=== PATIENT | female | born 1965 | race Caucasian/White ===

== ENCOUNTER 2018-10-03 19:00 | Observation (INO) | payer BC ==
[2018-10-03] MEDS ORDERED: Sodium Chloride 0.9% 1000 ML 1,000 ML IV STA (19:17)
[2018-10-03] MEDS ORDERED: Zofran 4 MG/2 ML VIAL IV ONE (19:17)
[2018-10-03] MEDS ORDERED: MORPHINE SULFATE 2 MG INJ IV ONE (19:17)
[2018-10-03] MEDS ORDERED: Zofran 4 MG/2 ML VIAL ONE (19:29)
[2018-10-03] MEDS ORDERED: MORPHINE SULFATE 2 MG INJ ONE ×2 (19:29→22:50)
[2018-10-03] MEDS ORDERED: Sodium Chloride 0.9% 1000 ML 1,000 ML ONE (19:29)
[2018-10-03 19:33] LABS: BASOPHIL % 0.3 % (0.0-0.4); Basophil (Absolute #) 0.03 (0-0.4); Eosinophil % 2.7 % (0.00-5.0); Eosinophil (Absolute #) 0.26 (0-0.5); Granulocyte Absolute (ANC) 6.79 (1.4-6.9); Granulocytes % 69.1 % (36.0-66.0); Hemoglobin 14.6 gm/dl (12.0-16.0); Lymphocyte (Absolute #) 1.82 (1.0-4.6); Lymphocytes % 18.6 % (24.0-44.0); Mean Cell Volume 94.5 fl (78-100); Mean Corpuscular Hemoglobin 32.1 pg (26-32); Mean Platelet Volume 10.2 fl (6-9.5); Monocyte (Absolute #) 0.91 (0.0-1.3); Monocytes % 9.3 % (0.0-12.0); Platelet Count 236 K/mm3 (150-450); Red Blood Count 4.55 M/mm3 (4.1-5.4); Red Cell Distribution Width 12.4 % (11.5-14.0); White Blood Count 9.8 K/mm3 (4.0-10.5)
[2018-10-03 19:46] LABS: ALBUMIN 4.7 g/dL (3.5-5.0); ALKALINE PHOSPHATASE 105 U/L (38-126); AMYLASE 91 U/L (30-110); ANION GAP 15.3 MEQ/L (5-15); BLOOD UREA NITROGEN 13 mg/dL (7-17); CHLORIDE 102 mmol/L (98-107); Calcium 9.8 mg/dL (8.4-10.2); Carbon Dioxide 25 mmol/L (22-30); Creatinine 1 0.56 mg/dL (0.52-1.04); Glucose 110 mg/dL (74-106); LIPASE 80 U/L (23-300); Potassium 4.1 mmol/L (3.5-5.1); SGOT/AST 36 U/L (14-36); SGPT/ALT 58 U/L (0-35); SODIUM 138 mmol/L (137-145); Total Protein 7.7 g/dL (6.3-8.2)
[2018-10-03 20:02] LABS: Appearance CLEAR (CLEAR); Bilirubin NEGATIVE (NEGATIVE); Blood SMALL Ery/ul (0-5); Glucose NEGATIVE (NEGATIVE); Ketones NEGATIVE (NEGATIVE); Leukocyte Esterase NEGATIVE (NEGATIVE); Nitrite NEGATIVE (NEGATIVE); Protein,Urine Dip NEGATIVE (Negative); Urobilinogen NEGATIVE mg/dL (0-1)
[2018-10-03 20:05] LABS: Bacteria NONE SEEN /HPF (NEGATIVE)
[2018-10-03] MEDS ORDERED: MORPHINE SULFATE 2 MG INJ IV STA (22:39)
--- NOTE | 2018-10-03 23:01 | ERPHSYRPT ---
- History of Present Illness Historian: patient Exam Limitations: no limitations Patient Subjective Stated Complaint: pt here for pain to right side of abd that radiates to right flank area with nausea Triage Nursing Assessment: pt alert, walked in, resp easy, skin w/d/p, abd soft, Physician History: Pt is a 53 y/o female that presented to the ER with severe R sided abdominal pain that is colicky in nature. Pt states, RUQ, and R CVA pain. Severe nausea , but no vomiting. No SOB or cough. No chest pain or palpitations. No dysuria , or frequency. No constipation. No melena, hematochezia or hematuria. Timing/Duration: today Activities at Onset: none Quality: cramping, sharpness Abdominal Pain Onset Location: RUQ, flank (On right) Pain Radiation: no radiation Severity of Pain-Max: severe Severity of Pain-Current: severe Modifying Factors: Improves With: nothing, analgesics Associated Symptoms: nausea Previous symptoms: no prior history Allergies/Adverse Reactions: red dye Allergy (Verified 10/03/18 19:11) Home Medications: Levothyroxine Sodium 75 Mcg [Synthroid 75 Mcg] 75 meq DAILY 10/03/18 [ History] Penicillin V Potassium 500 mg BID 10/03/18 [History] Hx Tetanus, Diphtheria Vaccination/Date Given: Yes Hx Influenza Vaccination/Date Given: No Hx Pneumococcal Vaccination/Date Given: No Immunizations Up to Date: Yes - Review of Systems Constitutional: Malaise Eyes: No Symptoms Ears, Nose, & Throat: No Symptoms Respiratory: No Cough, No Dyspnea Cardiac: No Chest Pain, No Edema, No Syncope Abdominal/Gastrointestinal: Abdominal Pain, Nausea Genitourinary Symptoms: Flank Pain (on R), No Dysuria Musculoskeletal: No Back Pain, No Neck Pain Skin: No Rash Neurological: No Dizziness, No Focal Weakness, No Sensory Changes - Past Medical History Pertinent Past Medical History: Yes Endocrine Medical History: Hypothyroidism - Past Surgical History Past Surgical History: Yes Female Surgical History: Hysterectomy - Social History Smoking Status: Never smoker Exposure to second hand smoke: No Drug Use: none Patient Lives Alone: No - Female History Hx Last Menstrual Period: hyster Hx Now: No - Nursing Vital Signs Nursing Vital Signs: Initial Vital Signs Temperature 97.4 F 10/03/18 19:08 Pulse Rate 76 02/24/19 19:08 Respiratory Rate 16 10/03/18 19:08 Blood Pressure 159/76 10/03/18 19:08 O2 Sat by Pulse Oximetry 99 10/03/18 19:08 Pain Scale Pain Intensity 9 - Physical Exam General Appearance: severe distress Eye Exam: PERRL/EOMI, eyes nml inspection Ears, Nose, Throat Exam: normal ENT inspection, pharynx normal, moist mucous membranes Neck Exam: normal inspection, non-tender, supple, full range of motion Respiratory Exam: normal breath sounds, lungs clear, No respiratory distress Cardiovascular Exam: regular rate/rhythm, normal heart sounds Gastrointestinal/Abdomen Exam: tenderness (RUQ, R CVA) Back Exam: normal inspection, normal range of motion, No CVA tenderness, No vertebral tenderness Extremity Exam: normal inspection, normal range of motion, pelvis stable Neurologic Exam: alert, oriented x 3, cooperative, normal mood/affect, nml cerebellar function, sensation nml, No motor deficits SpO2: 100 - Course Nursing assessment & vital signs reviewed: Yes - CT Exams Abdomen/Pelvis CT Interpretation: Negative, Tele-radiologist Report Ordered Tests: Active Orders 24 hr Category Date Time Status IV Insertion STAT Care 10/03/18 19:17 Active ABDOMEN AND PELVIS W CONTRAST [CT] Routine Exams 10/03/18 Ordered ABDOMEN AND PELVIS W/0 CONTRAS [CT] Stat Exams 10/03/18 19:18 Taken ABDOMINAL-LIMITED [US] Stat Exams 10/03/18 Ordered KIDNEY [US] Stat Exams 10/03/18 Ordered AMYLASE Stat Lab 10/03/18 19:29 Completed CBC W DIFF Stat Lab 10/03/18 19:29 Completed CMP Stat Lab 10/03/18 19:29 Completed LIPASE Stat Lab 10/03/18 19:29 Completed Lactic Acid Stat Lab 10/03/18 19:30 Completed UA W/RFX UR CULTURE Stat Lab 10/03/18 19:56 Completed Medication Summary Discontinued Medications Generic Name Dose Route Start Last Admin Trade Name Freq PRN Reason Stop Dose Admin Sodium Chloride 1,000 mls @ 999 mls/hr 10/03/18 19:17 10/03/18 19:35 Sodium Chloride 0.9% 1000 Ml IV 10/03/18 20:17 999 mls/hr .Q1H1M STA Administration Sodium Chloride Confirm 10/03/18 19:29 Sodium Chloride 0.9% 1000 Ml Administered 10/03/18 19:30 Dose 1,000 mls @ ud .ROUTE .STK-MED ONE Morphine Sulfate 2 mg 10/03/18 19:17 10/03/18 19:39 Morphine Sulfate 2 Mg Inj IV 10/03/18 19:18 2 mg STAT ONE Administration Morphine Sulfate Confirm 10/03/18 19:29 Morphine Sulfate 2 Mg Inj Administered 10/03/18 19:30 Dose 2 mg .ROUTE .STK-MED ONE Morphine Sulfate 2 mg 10/03/18 22:39 Morphine Sulfate 2 Mg Inj IV 10/03/18 22:40 ONCE STA Morphine Sulfate Confirm 10/03/18 22:50 Morphine Sulfate 2 Mg Inj Administered 10/03/18 22:51 Dose 2 mg .ROUTE .STK-MED ONE Ondansetron HCl 4 mg 10/03/18 19:17 10/03/18 19:44 Zofran 4 Mg/2 Ml Vial IV 10/03/18 19:18 4 mg STAT ONE Administration Ondansetron HCl Confirm 10/03/18 19:29 Zofran 4 Mg/2 Ml Vial Administered 10/03/18 19:30 Dose 4 mg .ROUTE .STK-MED ONE Lab/Rad Data: Laboratory Result Diagrams 10/03/18 19:29 10/03/18 19:29 Laboratory Results 10/03/18 10/03/18 10/03/18 Range/Units 19:56 19:30 19:29 WBC (4.0-10.5) K/mm3 RBC (4.1-5.4) M/mm3 Hgb (12.0-16.0) gm/dl Hct (35-47) % MCV (78-100) fl MCH (26-32) pg MCHC (32-36) g/dl RDW (11.5-14.0) % Plt Count (150-450) K/mm3 MPV (6-9.5) fl Gran % (36.0-66.0) % Eos # (Auto) (0-0.5) Absolute Lymphs (auto) (1.0-4.6) Absolute Monos (auto) (0.0-1.3) Lymphocytes % (24.0-44.0) % Monocytes % (0.0-12.0) % Eosinophils % (0.00-5.0) % Basophils % (0.0-0.4) % Absolute Granulocytes (1.4-6.9) Basophils # (0-0.4) Sodium 138 (137-145) mmol/L Potassium 4.1 (3.5-5.1) mmol/L Chloride 102 (98-107) mmol/L Carbon Dioxide 25 (22-30) mmol/L Anion Gap 15.3 H (5-15) MEQ/L BUN 13 (7-17) mg/dL Creatinine 0.56 (0.52-1.04) mg/dL Estimated GFR > 60.0 ML/MIN Glucose 110 H (74-106) mg/dL Lactic Acid 1.7 (0.4-2.0) Calcium 9.8 (8.4-10.2) mg/dL Total Bilirubin 0.60 (0.2-1.3) mg/dL AST 36 (14-36) U/L ALT 58 H (0-35) U/L Alkaline Phosphatase 105 (38-126) U/L Serum Total Protein 7.7 (6.3-8.2) g/dL Albumin 4.7 (3.5-5.0) g/dL Amylase 91 (30-110) U/L Lipase 80 (23-300) U/L Urine Color STRAW (YELLOW) Urine Appearance CLEAR (CLEAR) Urine pH 7.0 (5-6) Ur Specific [place] 1.010 (1.005-1.025) Urine Protein NEGATIVE (Negative) Urine Ketones NEGATIVE (NEGATIVE) Urine Blood SMALL (0-5) Chon/ul Urine Nitrite NEGATIVE (NEGATIVE) Urine Bilirubin NEGATIVE (NEGATIVE) Urine Urobilinogen NEGATIVE (0-1) mg/dL Ur Leukocyte Esterase NEGATIVE (NEGATIVE) Urine WBC (Auto) NONE (0-5) /HPF Urine RBC (Auto) NONE (0-2) /HPF U Epithel Cells (Auto) NONE (FEW) /HPF Urine Bacteria (Auto) NONE SEEN (NEGATIVE) /HPF Urine Culture Reflexed NO (NO) Urine Glucose NEGATIVE (NEGATIVE) mg/dL 10/03/18 Range/Units 19:29 WBC 9.8 (4.0-10.5) K/mm3 RBC 4.55 (4.1-5.4) M/mm3 Hgb 14.6 (12.0-16.0) gm/dl Hct 43.0 (35-47) % MCV 94.5 (78-100) fl MCH 32.1 H (26-32) pg MCHC 34.0 (32-36) g/dl RDW 12.4 (11.5-14.0) % Plt Count 236 (150-450) K/mm3 MPV 10.2 H (6-9.5) fl Gran % 69.1 H (36.0-66.0) % Eos # (Auto) 0.26 (0-0.5) Absolute Lymphs (auto) 1.82 (1.0-4.6) Absolute Monos (auto) 0.91 (0.0-1.3) Lymphocytes % 18.6 L (24.0-44.0) % Monocytes % 9.3 (0.0-12.0) % Eosinophils % 2.7 (0.00-5.0) % Basophils % 0.3 (0.0-0.4) % Absolute Granulocytes 6.79 (1.4-6.9) Basophils # 0.03 (0-0.4) Sodium (137-145) mmol/L Potassium (3.5-5.1) mmol/L Chloride (98-107) mmol/L Carbon Dioxide (22-30) mmol/L Anion Gap (5-15) MEQ/L BUN (7-17) mg/dL Creatinine (0.52-1.04) mg/dL Estimated GFR ML/MIN Glucose (74-106) mg/dL Lactic Acid (0.4-2.0) Calcium (8.4-10.2) mg/dL Total Bilirubin (0.2-1.3) mg/dL AST (14-36) U/L ALT (0-35) U/L Alkaline Phosphatase (38-126) U/L Serum Total Protein (6.3-8.2) g/dL Albumin (3.5-5.0) g/dL Amylase (30-110) U/L Lipase (23-300) U/L Urine Color (YELLOW) Urine Appearance (CLEAR) Urine pH (5-6) Ur Specific [place] (1.005-1.025) Urine Protein (Negative) Urine Ketones (NEGATIVE) Urine Blood (0-5) Chon/ul Urine Nitrite (NEGATIVE) Urine Bilirubin (NEGATIVE) Urine Urobilinogen (0-1) mg/dL Ur Leukocyte Esterase (NEGATIVE) Urine WBC (Auto) (0-5) /HPF Urine RBC (Auto) (0-2) /HPF U Epithel Cells (Auto) (FEW) /HPF Urine Bacteria (Auto) (NEGATIVE) /HPF Urine Culture Reflexed (NO) Urine Glucose (NEGATIVE) mg/dL - Progress Progress: unchanged Progress Note: 10/03/18 22:58 Pt was worked up and was found to have no nephrolithiasis, no cholicystitis or cholelithiasis, no Appendicitis. No leukocytosis, and normal clean UA. Pt will be placed in observation, and Dr Cuadra accepted. Discussed with : Juan Manuel West Will see patient in: hospital (observation) - Departure Time of Disposition: 23:01 Departure Disposition: Observation Clinical Impression: Abdominal pain Condition: Stable Critical Care Time: No Referrals: POOJA HOLLEY MD [Primary Care Provider] -
[2018-10-04] MEDS: Sodium Chloride 0.9% 1000 ML 1,000 ML IV SCH ×3 (01:04→20:55)
[2018-10-04] MEDS: DILAUDID 2 MG INJECTION IV PRN ×2 (03:22→10:19)
[2018-10-04] MEDS: Zofran 4 MG/2 ML VIAL IV PRN ×3 (03:31→15:20)
[2018-10-04 06:30] LABS: INR 1.1 (0.8-3.0); PROTIME 12.8 SECONDS (9.95-12.35)
[2018-10-04 06:36] LABS: ALBUMIN 4.2 g/dL (3.5-5.0); ALKALINE PHOSPHATASE 87 U/L (38-126); BLOOD UREA NITROGEN 9 mg/dL (7-17); CHLORIDE 103 mmol/L (98-107); Calcium 8.8 mg/dL (8.4-10.2); Carbon Dioxide 25 mmol/L (22-30); Creatinine 1 0.53 mg/dL (0.52-1.04); Glucose 117 mg/dL (74-106); SGOT/AST 34 U/L (14-36); SGPT/ALT 48 U/L (0-35); SODIUM 138 mmol/L (137-145)
[2018-10-04 06:53] LABS: BASOPHIL % 0.2 % (0.0-0.4); Basophil (Absolute #) 0.03 (0-0.4); Eosinophil % 1.1 % (0.00-5.0); Eosinophil (Absolute #) 0.14 (0-0.5); Granulocyte Absolute (ANC) 10.36 (1.4-6.9); Granulocytes % 78.2 % (36.0-66.0); Hematocrit 41.4 % (35-47); Hemoglobin 13.9 gm/dl (12.0-16.0); Lymphocyte (Absolute #) 1.59 (1.0-4.6); Mean Cell Volume 95.8 fl (78-100); Mean Corpuscular Hemoglobin 32.2 pg (26-32); Mean Corpuscular Hgb Concent. 33.6 g/dl (32-36); Mean Platelet Volume 10.5 fl (6-9.5); Monocyte (Absolute #) 1.13 (0.0-1.3); Monocytes % 8.5 % (0.0-12.0); Platelet Count 254 K/mm3 (150-450); Red Blood Count 4.32 M/mm3 (4.1-5.4); Red Cell Distribution Width 12.4 % (11.5-14.0); White Blood Count 13.3 K/mm3 (4.0-10.5)
--- NOTE | 2018-10-04 08:47 | XRAY ---
Indication: Right upper quadrant/flank pain. History renal stone. Multiple contiguous axial images obtained through the abdomen and pelvis without contrast as ordered. Comparison: May 23, 2016. Lung bases demonstrates minimal/mild bibasilar fibrosis/scarring and 4 mm noncalcified subpleural nodule in the right base. No infiltrate or effusion. Heart is not enlarged. Stable moderate-sized hiatal hernia. Stomach is distended with food/fluid. Noncontrasted stomach and bowel loops appear nonobstructed. Normal appendix. Again hysterectomy with new 1.8 cm right ovary cyst. No free fluid/air. Stable nonobstructing left renal micro-calculus and left lower pole angiomyolipoma. Remaining liver, gallbladder, pancreas, spleen, adrenal glands, kidneys, ureters, bladder, and aorta appear unremarkable for noncontrast exam. Osseous structures intact again with minimal degenerative changes throughout the spine. No ventral or inguinal hernias. Impression: 1. Stable moderate-sized hiatal hernia, nonobstructing left renal micro-calculus, and left renal angiomyolipoma. 2. Stable right lung base noncalcified micronodule favored to be benign given stability over the years. 3. New 1.8 cm dominant right ovary cyst. 4. Remaining CT abdomen/pelvis without contrast exam is negative. Comment: Preliminary interpretation was made by C. No critical discrepancy. CT DI 20.19
[2018-10-04] MEDS: PROTONIX 40 MG IV IV SCH (10:05)
[2018-10-04] MEDS ORDERED: Phenergan 25 MG INJ IM PRN (11:53)
[2018-10-04] MEDS: SYNTHROID 75 MCG PO SCH (13:26)
--- NOTE | 2018-10-04 15:26 | XRAY ---
Indication: Right flank pain. 1.8 cm right ovary cyst on recent CT abdomen/pelvis. Hysterectomy. Two-dimensional transabdominal pelvic sonogram was performed. Comparison: None Uterus surgically absent. Neither ovaries visualized. No suspicious solid/cystic mass or fluid collection. Impression: Presumed total hysterectomy in a otherwise negative pelvic sonogram.
[2018-10-04] MEDS: TORAdol 30 mg Injection IV PRN (18:47)
[2018-10-05] MEDS: PROTONIX 40 MG IV IV SCH (08:09)
[2018-10-05] MEDS: Sodium Chloride 0.9% 1000 ML 1,000 ML IV SCH ×2 (08:10→14:19)
[2018-10-05] MEDS: TORAdol 30 mg Injection IV PRN ×2 (08:16→14:18)
[2018-10-05 09:13] LABS: Hematocrit 39.6 % (35-47); Mean Cell Volume 96.4 fl (78-100); Mean Corpuscular Hemoglobin 31.6 pg (26-32); Mean Corpuscular Hgb Concent. 32.8 g/dl (32-36); Mean Platelet Volume 10.1 fl (6-9.5); Platelet Count 192 K/mm3 (150-450); Red Blood Count 4.11 M/mm3 (4.1-5.4); Red Cell Distribution Width 12.3 % (11.5-14.0); White Blood Count 7.7 K/mm3 (4.0-10.5)
[2018-10-05 09:31] LABS: ALBUMIN 3.8 g/dL (3.5-5.0); ALKALINE PHOSPHATASE 72 U/L (38-126); ANION GAP 9.3 MEQ/L (5-15); BLOOD UREA NITROGEN 9 mg/dL (7-17); CHLORIDE 107 mmol/L (98-107); Calcium 8.9 mg/dL (8.4-10.2); Carbon Dioxide 27 mmol/L (22-30); Glucose 94 mg/dL (74-106); Potassium 3.6 mmol/L (3.5-5.1); SGOT/AST 27 U/L (14-36); SGPT/ALT 44 U/L (0-35); SODIUM 141 mmol/L (137-145); Total Protein 6.5 g/dL (6.3-8.2)
--- NOTE | 2018-10-05 09:42 | XRAY ---
Indication: Abdomen pain. Nausea and vomiting. Two-dimensional gallbladder sonogram performed. Comparison: None Gallbladder normally distended with 2.1 cm gallstone. No gallbladder wall thickening or pericholecystic fluid. Common bile duct measures 4.8 mm. No intrahepatic biliary distention. Remaining visualized portions of the liver, pancreas, and right kidney appear sonographically unremarkable. Right kidney measures 12.3 cm in length. No ascites. Impression: Cholelithiasis without cholecystitis or biliary distention.
[2018-10-05] MEDS: SYNTHROID 75 MCG PO SCH (11:07)
[2018-10-05] MEDS ORDERED: Lactated Ringers 1,000 ML IV SCH (11:30)
[2018-10-05] MEDS ORDERED: MEFOXIN 2 GM PREMIX** 2 GM/50 ML ML IV SCH (12:00)
--- NOTE | 2018-10-05 12:43 | PCM.HP ---
History of Present Illness - Chief Complaint Chief Complaint: abd pain for 2-3 days Date: 10/04/18 History of Present Illness: is a 53 year old female admitted with severe right lower quadrant abdominal pain for 2-3 days - Review of Systems Constitutional: No Fever, No Chills Eyes: No Symptoms Ears, Nose, & Throat: No Symptoms Respiratory: No Cough, No Short Of Breath Cardiac: No Chest Pain, No Edema, No Syncope Abdominal/Gastrointestinal: Abdominal Pain, No Nausea, No Vomiting, No Diarrhea Genitourinary Symptoms: No Dysuria Musculoskeletal: No Back Pain, No Neck Pain Skin: No Rash Neurological: No Dizziness, No Focal Weakness, No Sensory Changes Psychological: No Symptoms Endocrine: No Symptoms Hematologic/Lymphatic: No Symptoms Immunological/Allergic: No Symptoms Medications & Allergies Home Medications: Home Medication List Levothyroxine Sodium 75 Mcg [Synthroid 75 Mcg] 75 meq DAILY 10/03/18 [ History Confirmed 10/04/18] Penicillin V Potassium 500 mg BID 10/03/18 [History Confirmed 10/04/18] Allergies/Adverse Reactions: Allergies Allergy/AdvReac Type Severity Reaction Status Date / Time red dye Allergy Verified 10/03/18 19:11 - Past Medical History Past Medical History: Yes Neurological History: No Pertinent History Cardiac History: No Pertinent History Respiratory History: No Pertinent History Endocrine Medical History: Hypothyroidism Musculoskelatal History: No Pertinent History GI Medical History: No Pertinent History History: No Pertinent History Pyscho-Social History: No Pertinent History Reproductive Disorders: No Pertinent History Comment: minor mitrol valve prolapse - Female History Hx Last Menstrual Period: hyster Are you now?: No - Past Surgical History Past Surgical History: Yes Cardiac History: No Pertinent History Respiratory Surgery: No Pertinent History GI Surgical History: No Pertinent History Genitourinary Surgical Hx: No Pertinent History Musculskeletal Surgical Hx: No Pertinent History Female Surgical History: Hysterectomy - Social History Smoking Status: Never smoker Exposure to second hand smoke: No Alcohol: None Drug Use: none - Physical Exam Vital Signs: Vital Signs - 24 hr Temp Pulse Resp BP BP Pulse Ox 10/05/18 12:08 98.3 F 66 20 136/70 99 10/05/18 11:14 97.7 F 74 18 129/61 129/63 97 10/05/18 07:10 97.7 F 74 18 129/61 97 10/05/18 04:00 98.1 F 71 20 118/57 97 10/05/18 00:00 98.2 F 69 18 111/58 96 10/04/18 20:00 98.8 F 88 16 172/81 97 10/04/18 16:00 98.3 F 70 20 129/63 99 General Appearance: no apparent distress, alert Neurologic Exam: alert, oriented x 3, cooperative, normal mood/affect, nml cerebellar function, nml station & gait, sensation nml, No motor deficits Eye Exam: PERRL/EOMI, eyes nml inspection Ears, Nose, Throat Exam: normal ENT inspection, TMs normal, pharynx normal, moist mucous membranes Neck Exam: normal inspection, non-tender, supple, full range of motion Respiratory Exam: normal breath sounds, lungs clear, No respiratory distress Cardiovascular Exam: regular rate/rhythm, normal heart sounds, normal peripheral pulses Gastrointestinal/Abdomen Exam: soft, normal bowel sounds, tenderness, No mass Back Exam: normal inspection, normal range of motion, No CVA tenderness, No vertebral tenderness Extremity Exam: normal inspection, normal range of motion, pelvis stable Skin Exam: normal color, warm, dry, No rash Lymphatic Exam: No adenopathy Results - Labs Lab/Micro Results: Lab Results-Last 24 Hours 10/05/18 10/05/18 Range/Units 09:06 09:06 WBC 7.7 (4.0-10.5) K/mm3 RBC 4.11 (4.1-5.4) M/mm3 Hgb 13.0 (12.0-16.0) gm/dl Hct 39.6 (35-47) % MCV 96.4 (78-100) fl MCH 31.6 (26-32) pg MCHC 32.8 (32-36) g/dl RDW 12.3 (11.5-14.0) % Plt Count 192 (150-450) K/mm3 MPV 10.1 H (6-9.5) fl Sodium 141 (137-145) mmol/L Potassium 3.6 (3.5-5.1) mmol/L Chloride 107 (98-107) mmol/L Carbon Dioxide 27 (22-30) mmol/L Anion Gap 9.3 (5-15) MEQ/L BUN 9 (7-17) mg/dL Creatinine 0.60 (0.52-1.04) mg/dL Estimated GFR > 60.0 ML/MIN Glucose 94 (74-106) mg/dL Calcium 8.9 (8.4-10.2) mg/dL Total Bilirubin 0.80 (0.2-1.3) mg/dL AST 27 (14-36) U/L ALT 44 H (0-35) U/L Alkaline Phosphatase 72 (38-126) U/L Serum Total Protein 6.5 (6.3-8.2) g/dL Albumin 3.8 (3.5-5.0) g/dL - Radiology Impressions Radiology Exams & Impressions: Radiology Procedures Category Date Time Status ABDOMEN AND PELVIS W/0 CONTRAS [CT] Stat Exams 10/03/18 19:18 Completed GALLBLADDER [US] Urgent Exams 10/05/18 08:00 Completed PELVIC [US] Urgent Exams 10/04/18 11:53 Completed Assessment/Plan (1) Abdominal pain Current Visit: Yes Status: Acute Qualifiers: Abdominal location: right lower quadrant Qualified Code(s): R10.31 - Right lower quadrant pain Code(s): R10.9 - UNSPECIFIED ABDOMINAL PAIN
--- NOTE | 2018-10-05 12:44 | PCM.NOTE ---
Date and Time: 10/05/18 1243 Subjective Assessment: doing ok, going for gall bladder surgery - Review of Systems Constitutional: No Fever, No Chills Eyes: No Symptoms Ears, Nose, & Throat: No Symptoms Respiratory: No Cough, No Short Of Breath Cardiac: No Chest Pain, No Edema, No Syncope Abdominal/Gastrointestinal: No Abdominal Pain, No Nausea, No Vomiting, No Diarrhea Genitourinary Symptoms: No Dysuria Musculoskeletal: No Back Pain, No Neck Pain Skin: No Rash Neurological: No Dizziness, No Focal Weakness, No Sensory Changes Psychological: No Symptoms Endocrine: No Symptoms Hematologic/Lymphatic: No Symptoms Immunological/Allergic: No Symptoms Objective Exam General Appearance: no apparent distress, alert Neurologic Exam: alert, oriented x 3, cooperative, normal mood/affect, nml cerebellar function, sensation nml, No motor deficits Skin Exam: normal color, warm, dry Eye Exam: PERRL, EOMI, eyes nml inspection Ears, Nose, Throat Exam: normal ENT inspection, pharynx normal, moist mucous membranes Neck Exam: normal inspection, non-tender, supple, full range of motion Respiratory Exam: normal breath sounds, lungs clear, No respiratory distress Cardiovascular Exam: regular rate/rhythm, normal heart sounds Gastrointestinal/Abdomen Exam: soft, No tenderness, No mass Extremity Exam: normal inspection, normal range of motion Back Exam: normal inspection, normal range of motion, No CVA tenderness, No vertebral tenderness Pelvic Exam: deferred Rectal Exam: deferred OBJECTIVE DATA Vital Signs: Vital Signs - 24 hr Temp Pulse Resp BP BP Pulse Ox 10/05/18 12:08 98.3 F 66 20 136/70 99 10/05/18 11:14 97.7 F 74 18 129/61 129/63 97 10/05/18 07:10 97.7 F 74 18 129/61 97 10/05/18 04:00 98.1 F 71 20 118/57 97 10/05/18 00:00 98.2 F 69 18 111/58 96 10/04/18 20:00 98.8 F 88 16 172/81 97 10/04/18 16:00 98.3 F 70 20 129/63 99 Pain Assessment - Last Documented Pain Intensity 3 Pain Scale Used 0-10 Pain Scale Intake and Output: Intake & Output 10/03/18 10/04/18 10/05/18 10/06/18 11:59 11:59 11:59 11:59 Intake Total 0 2513 Output Total 400 1100 300 Balance -400 1413 -300 Weight 72 kg 72 kg Lab Results: Lab Results-Last 24 Hours 10/05/18 10/05/18 Range/Units 09:06 09:06 WBC 7.7 (4.0-10.5) K/mm3 RBC 4.11 (4.1-5.4) M/mm3 Hgb 13.0 (12.0-16.0) gm/dl Hct 39.6 (35-47) % MCV 96.4 (78-100) fl MCH 31.6 (26-32) pg MCHC 32.8 (32-36) g/dl RDW 12.3 (11.5-14.0) % Plt Count 192 (150-450) K/mm3 MPV 10.1 H (6-9.5) fl Sodium 141 (137-145) mmol/L Potassium 3.6 (3.5-5.1) mmol/L Chloride 107 (98-107) mmol/L Carbon Dioxide 27 (22-30) mmol/L Anion Gap 9.3 (5-15) MEQ/L BUN 9 (7-17) mg/dL Creatinine 0.60 (0.52-1.04) mg/dL Estimated GFR > 60.0 ML/MIN Glucose 94 (74-106) mg/dL Calcium 8.9 (8.4-10.2) mg/dL Total Bilirubin 0.80 (0.2-1.3) mg/dL AST 27 (14-36) U/L ALT 44 H (0-35) U/L Alkaline Phosphatase 72 (38-126) U/L Serum Total Protein 6.5 (6.3-8.2) g/dL Albumin 3.8 (3.5-5.0) g/dL Radiology Exams: Radiology Procedures Category Date Time Status ABDOMEN AND PELVIS W/0 CONTRAS [CT] Stat Exams 10/03/18 19:18 Completed GALLBLADDER [US] Urgent Exams 10/05/18 08:00 Completed PELVIC [US] Urgent Exams 10/04/18 11:53 Completed Assessment/Plan (1) Abdominal pain Current Visit: Yes Status: Acute Qualifiers: Abdominal location: right lower quadrant Qualified Code(s): R10.31 - Right lower quadrant pain Code(s): R10.9 - UNSPECIFIED ABDOMINAL PAIN (2) Cholecystitis Current Visit: Yes Status: Acute Assessment & Plan: going for surgery Code(s): K81.9 - CHOLECYSTITIS, UNSPECIFIED
[2018-10-05] MEDS ORDERED: Sensorcaine 0.25% 10 ML ONE (17:27)
[2018-10-05] MEDS ORDERED: Lactated Ringers 1,000 ML IV ONE (17:27)
[2018-10-05] MEDS ORDERED: SUBLIMAZE 100 MCG/2 ML ONE (19:40)
[2018-10-05] MEDS ORDERED: Dextrose 5%-Lr IV Solution 1000 ML 1,000 ML IV SCH (20:34)
[2018-10-05] MEDS ORDERED: TYLENOL 325 MG PO PRN (20:36)
[2018-10-05] MEDS ORDERED: Zofran 4 MG/2 ML VIAL IV PRN (20:41)
[2018-10-05] MEDS: NORCO 5/325 MG PO PRN (21:01)
[2018-10-06] MEDS: MEFOXIN 1 Gm/ D5W 50 Ml** 1 G/50 ML ML IV SCH ×2 (01:17→07:59)
[2018-10-06] MEDS: NORCO 5/325 MG PO PRN ×2 (01:24→07:40)
--- NOTE | 2018-10-06 07:36 | CONS ---
CONSULT DATE: 10/04/2018 REASON FOR CONSULT: Abdominal pain. HISTORY: A 53 year-old had some lower abdominal pain presented to the hospital. Multiple questions were asked at the bedside yesterday evening. It seemed like she predominantly had upper abdominal pain. She has had previous gallbladder ultrasound but she has not had one recently. This Thursday she had a headache and on Thursday she had upper abdominal pain and on Thursday she had mid to lower abdominal pain. She has a 1.8 cm cyst on an ovary. Ultrasound was ordered. Ultrasound revealed multiple stones. IMPRESSION: Chronic cholecystitis, cholelithiasis with recent subacute attack. PLAN: Laparoscopic cholecystectomy.
--- NOTE | 2018-10-06 08:32 | OP ---
SURGERY DATE/TIME: 10/05/20181816 PREOPERATIVE DIAGNOSIS: Symptomatic cholelithiasis. POSTOPERATIVE DIAGNOSIS: Symptomatic cholelithiasis. PROCEDURE: Laparoscopic cholecystectomy. SURGEON: Micheal Alberts M.D. ANESTHESIA: General endotracheal tube. COMPLICATIONS: None. CONDITION: Stable. INDICATION: A patient with upper abdominal pain, some mid abdominal pain, some minimal right lower quadrant pain. She states she thought she had a completion oophorectomy on the right. Ultrasound revealing stones. Procedure discussed. She desired to have cholecystectomy. DESCRIPTION OF PROCEDURE: Taken to surgery. General anesthetic, routine prep and drape. Verses needle inserted at umbilicus. There was a 3 inch strip of omental adhesions against the anterior abdominal wall from the umbilicus down to the symphysis. A glimpse of the pelvis did not show any ovaries. I do not think there is any residual ovary there although I had about 95% look from the laparoscopic christopher position. It looked like there was one loop of small bowel that was stuck against the pelvic side wall that may be erroneously called a cyst. The gallbladder was distended. It was slightly edematous. Cystic duct defined. Cystic artery defined. Both structures triply clipped. Gallbladder rolled out of gallbladder fossa. Gallbladder delivered through umbilical hole which was widened slightly and the gallbladder extracted. The field is clean and dry. Hole closure device used at the umbilicus. CO2 exsufflated. Skin closed with 4-0 Vicryl and Steri-Strips. The patient tolerated the procedure satisfactorily.
--- NOTE | 2018-10-06 08:32 | PCM.NOTE ---
Date and Time: 10/06/18828 Subjective Assessment: doing ok, s/p cholecystectomy - Review of Systems Constitutional: No Fever, No Chills Eyes: No Symptoms Ears, Nose, & Throat: No Symptoms Respiratory: No Cough, No Short Of Breath Cardiac: No Chest Pain, No Edema, No Syncope Abdominal/Gastrointestinal: No Abdominal Pain, No Nausea, No Vomiting, No Diarrhea Genitourinary Symptoms: No Dysuria Musculoskeletal: No Back Pain, No Neck Pain Skin: No Rash Neurological: No Dizziness, No Focal Weakness, No Sensory Changes Psychological: No Symptoms Endocrine: No Symptoms Hematologic/Lymphatic: No Symptoms Immunological/Allergic: No Symptoms Objective Exam General Appearance: no apparent distress, alert Neurologic Exam: alert, oriented x 3, cooperative, normal mood/affect, nml cerebellar function, sensation nml, No motor deficits Skin Exam: normal color, warm, dry Eye Exam: PERRL, EOMI, eyes nml inspection Ears, Nose, Throat Exam: normal ENT inspection, pharynx normal, moist mucous membranes Neck Exam: normal inspection, non-tender, supple, full range of motion Respiratory Exam: normal breath sounds, lungs clear, No respiratory distress Cardiovascular Exam: regular rate/rhythm, normal heart sounds Gastrointestinal/Abdomen Exam: soft, No tenderness, No mass Extremity Exam: normal inspection, normal range of motion Back Exam: normal inspection, normal range of motion, No CVA tenderness, No vertebral tenderness Pelvic Exam: deferred Rectal Exam: deferred OBJECTIVE DATA Vital Signs: Vital Signs - 24 hr Temp Pulse Resp BP BP Pulse Ox 10/06/18 08:00 98 F 67 20 125/60 96 10/06/18 04:00 98.1 F 65 16 121/57 94 L 10/05/18 23:00 97.9 F 77 16 123/56 92 L 10/05/18 22:00 98.3 F 74 17 149/97 93 L 10/05/18 21:00 98.3 F 79 16 155/67 97 10/05/18 20:00 97.4 F 69 16 134/72 95 10/05/18 16:00 98.0 F 66 19 140/69 66 L 10/05/18 12:08 98.3 F 66 20 136/70 99 10/05/18 11:14 97.7 F 74 18 129/61 129/63 97 Oxygen-Last 24 hours O2 Percentage 2 Liters = 28% O2 Percentage 2 Liters = 28% O2 Percentage 2 Liters = 28% O2 Percentage 2 Liters = 28% Pain Assessment - Last Documented Pain Intensity 9 Pain Scale Used 0-10 Pain Scale Intake and Output: Intake & Output 10/03/18 10/04/18 10/05/18 10/06/18 11:59 11:59 11:59 11:59 Intake Total 0 2513 893 Output Total 400 1100 4000 Balance -400 1413 -3107 Weight 72 kg 72 kg Lab Results: Lab Results-Last 24 Hours 10/05/18 10/05/18 Range/Units 09:06 09:06 WBC 7.7 (4.0-10.5) K/mm3 RBC 4.11 (4.1-5.4) M/mm3 Hgb 13.0 (12.0-16.0) gm/dl Hct 39.6 (35-47) % MCV 96.4 (78-100) fl MCH 31.6 (26-32) pg MCHC 32.8 (32-36) g/dl RDW 12.3 (11.5-14.0) % Plt Count 192 (150-450) K/mm3 MPV 10.1 H (6-9.5) fl Sodium 141 (137-145) mmol/L Potassium 3.6 (3.5-5.1) mmol/L Chloride 107 (98-107) mmol/L Carbon Dioxide 27 (22-30) mmol/L Anion Gap 9.3 (5-15) MEQ/L BUN 9 (7-17) mg/dL Creatinine 0.60 (0.52-1.04) mg/dL Estimated GFR > 60.0 ML/MIN Glucose 94 (74-106) mg/dL Calcium 8.9 (8.4-10.2) mg/dL Total Bilirubin 0.80 (0.2-1.3) mg/dL AST 27 (14-36) U/L ALT 44 H (0-35) U/L Alkaline Phosphatase 72 (38-126) U/L Serum Total Protein 6.5 (6.3-8.2) g/dL Albumin 3.8 (3.5-5.0) g/dL Radiology Exams: Radiology Procedures Category Date Time Status GALLBLADDER [US] Urgent Exams 10/05/18 08:00 Completed PELVIC [US] Urgent Exams 10/04/18 11:53 Completed Multi-Disciplinary Progress Notes: Multi-Disciplinary Progress Notes 10/05/18 12:05 (created 10/05/18 15:10) Case Management Note by Keely Escalera DR. ROUNDED AND EVALUATED, PT TO HAVE LAP RIA AT 1800 TODAY. DISCUSSED THAT PT WILL LIKELY BE DISCHARGED TO TOMORROW, PROVIDING NO COMPLICATIONS. PT DENIES NEEDS AT PRESENT TIME, NO ADDNL DC NEEDS IDENTIFIED AT THIS TIME. PT VERBALIZED UNDERSTANDING TO ALL INFORMATION PROVIDED. Initialized on 10/05/18 15:10 - END OF NOTE Assessment/Plan (1) Abdominal pain Current Visit: Yes Status: Acute Qualifiers: Abdominal location: right lower quadrant Qualified Code(s): R10.31 - Right lower quadrant pain Assessment & Plan: doing better Last Vital Signs Temp 98 F 10/06/18 08:00 Pulse 67 10/06/18 08:00 Resp 20 10/06/18 08:00 BP 125/60 10/06/18 08:00 Pulse Ox 96 10/06/18 08:00 Allergies red dye Allergy (Verified 10/03/18 19:11) Active Medications Acetaminophen (Tylenol 325 Mg) 650 mg PO Q4H PRN PRN PRN Reason: PAIN AND/OR FEVER Stop: 11/04/18 20:35 Hydrocodone Bitart/Acetaminophen (Rupert 5/325 Mg) 1 tab PO Q4H PRN PRN PRN Reason: PAIN Stop: 10/10/18 20:37 Last Admin: 10/06/18 07:40 Dose: 1 tab Dextrose/Lactated Ringer's (Dextrose 5%-Lr Iv Solution 1000 Ml) 1,000 mls @ 50 mls/hr IV .Q20H WHIT Stop: 11/04/18 20:33 Last Admin: 10/05/18 21:01 Dose: 50 mls/hr Cefoxitin Sodium (Mefoxin 1 Gm/ D5w 50 Ml) 1 g in 50 mls @ 100 mls/hr IV Q8H WHIT Stop: 11/05/18 09:59 Ketorolac Tromethamine (Toradol 30 Mg Injection) 30 mg IV Q6H PRN PRN PRN Reason: PAIN Stop: 10/09/18 18:37 Last Admin: 10/05/18 14:18 Dose: 30 mg Levothyroxine Sodium (Synthroid 75 Mcg) 75 mcg PO DAILY [facility] Stop: 11/03/18 12:59 Last Admin: 10/05/18 11:07 Dose: Not Given Ondansetron HCl (Zofran 4 Mg/2 Ml Vial) 4 mg IV Q6H PRN PRN PRN Reason: NAUSEA/VOMITING Stop: 11/04/18 20:37 Pantoprazole Sodium (Protonix 40 Mg Iv) 40 mg IV Q24H10 [facility] Stop: 11/03/18 09:59 Last Admin: 10/05/18 08:09 Dose: 40 mg Promethazine HCl (Phenergan 25 Mg Inj) 12.5 mg IM Q6H PRN PRN PRN Reason: NAUSEA/VOMITING Stop: 11/03/18 11:52 Intake & Output 10/05/18 10/06/18 11:59 11:59 Intake Total 2513 893 Output Total 1100 4000 Balance 1413 -3107 Weight 72 kg Orders 10/05/18 19:14 Surgical Pathology Routine Lab Tests 10/05/18 10/05/18 09:06 09:06 WBC 7.7 RBC 4.11 Hgb 13.0 Hct 39.6 MCV 96.4 MCH 31.6 MCHC 32.8 RDW 12.3 Plt Count 192 MPV 10.1 H Sodium 141 Potassium 3.6 Chloride 107 Carbon Dioxide 27 Anion Gap 9.3 BUN 9 Creatinine 0.60 Estimated GFR > 60.0 Glucose 94 Calcium 8.9 Total Bilirubin 0.80 AST 27 ALT 44 H Alkaline Phosphatase 72 Serum Total Protein 6.5 Albumin 3.8 Code(s): R10.9 - UNSPECIFIED ABDOMINAL PAIN
[2018-10-06] MEDS: SYNTHROID 75 MCG PO SCH (09:47)
[2018-10-06] MEDS: PROTONIX 40 MG IV IV SCH (09:47)
[2018-10-06] MEDS ORDERED: MEFOXIN 1 Gm/ D5W 50 Ml** 1 G/50 ML ML IV SCH (10:00)
[2018-10-06] MEDS ORDERED: TORAdol 30 mg Injection IJ ONE (11:44)
[2018-10-06] MEDS ORDERED: Zofran 4 MG/2 ML VIAL IV ONE (11:44)
[2018-10-06] MEDS ORDERED: BRIDION 200MG/2ML IV ONE (11:44)
[2018-10-06] MEDS ORDERED: Quelicin Fliptop 200 MG/10 ML IJ ONE (11:44)
[2018-10-06] MEDS ORDERED: DIPRIVAN 200 MG/20 ML IV ONE (11:44)
[2018-10-06] MEDS ORDERED: Decadron 4 MG INJ IV ONE (11:44)
[2018-10-06] MEDS ORDERED: Zemuron 100 MG/10 ML IJ ONE (11:44)
[2018-10-06 13:06] VITALS: BP 120/64; PULSE 68; O2SAT 99
== END 2018-10-06 11:45 | disposition home or self-care (01) ==
LOC: ED 19:00 → MED SURG 10-04 00:42
PROVIDERS: ADMIT General Practice; ATTEND General Practice
DX: K80.10 Calculus of gallbladder with chronic cholecystitis without obstruction (principal); N83.209 Unspecified ovarian cyst, unspecified side; E03.9 Hypothyroidism, unspecified; Z79.899 Other long term (current) drug therapy
CPT/HCPCS: 36000; 36415; 74176; 76705; 76856; 80053; 81001; 82150; 83605; 83690; 85025; 85027; 85610; 96360; 96374; 96375; 99285; G0378; J0330; J0694; J1100; J1170; J1885; J2270; J2405; J2704; J3010; A9270-GY

== ENCOUNTER 2021-08-06 11:01 | Day surgery (SDC) | payer BC ==
[~2021-08-06 11:01] MED LIST: BUPIVACAINE 0.5% VIAL IJ ONE; XYLOCAINE 1% HCL 20 ML MDV ONE
[2021-08-06] MEDS ORDERED: CEFAZOLIN 2 GM-D5W BAG** 2 GM/50 ML ML IV SCH (11:30)
[2021-08-06] MEDS ORDERED: Lactated Ringers 1,000 ML IV SCH (11:30)
[2021-08-06] MEDS ORDERED: Decadron 4 MG INJ ONE (13:02)
[2021-08-06] MEDS ORDERED: Versed 2 MG/2 ML Injection ONE (13:02)
[2021-08-06] MEDS ORDERED: Xylocaine-Mpf 2% 5 Ml Vial ONE (13:02)
[2021-08-06] MEDS ORDERED: SUBLIMAZE 100 MCG/2 ML ONE (13:02)
[2021-08-06] MEDS ORDERED: DIPRIVAN 200 MG/20 ML IV ONE (13:02)
[2021-08-06] MEDS ORDERED: Zofran 4 MG/2 ML VIAL ONE (13:02)
[2021-08-06] MEDS ORDERED: TORAdol 30 mg Injection ONE (13:37)
[2021-08-06] MEDS ORDERED: MORPHINE SULFATE 10 MG/ML ONE (15:06)
[2021-08-06 15:55] VITALS: PULSE 64
[2021-08-06 16:15] VITALS: BP 130/77; O2SAT 96
--- NOTE | 2021-08-06 16:44 | XRAY ---
Indication: Right foot reconstruction. Intraoperative fluoroscopy provided for 25 seconds. 5 digital spot images ultimately demonstrates osteotomy 2nd metatarsal head with single intact orthopedic screw. Correlate with intraoperative findings/report.
--- NOTE | 2021-08-06 16:44 | XRAY ---
25 seconds of fluoroscopy was used in surgery for right foot reconstruction.
--- NOTE | 2021-08-07 11:13 | OP ---
SURGERY DATE/TIME: 08/06/2021 1317 PREOPERATIVE DIAGNOSES: 1) Planter plate tear second metatarsophalangeal joint right foot. 2) Elongated second metatarsal. 3) Pain right foot. POSTOPERATIVE DIAGNOSES: 1) Planter plate tear second metatarsophalangeal joint right foot. 2) Elongated second metatarsal. 3) Pain right foot. PROCEDURE: Plantar plate repair and modified Felton osteotomy second digit of the right foot. SURGEON: Edward Paul DPM. STEM FRAZER: None. ANESTHESIA: General plus postoperative metatarsal block. HEMOSTASIS: Ankle tourniquet set 250 mm of Mercury for 70 total minutes. ESTIMATED BLOOD LOSS: Less than 5 cc. MATERIALS: A #2 MaxBraid, 2.0 - 14 mm small headed Ashleigh cannulated partially threaded screw. INJECTABLES: 20 cc total of a 1:1 mixture of 1% lidocaine plain and 0.5% bupivacaine plain injected in a metatarsal block-type fashion. INDICATION FOR SURGERY: Renetta is a very pleasant 56-year-old female patient who presented to my clinic with complaints of pain to the ball of the right foot with ambulation. The patient indicates that there was a significant amount of pain and she sought out treatment with another provider who provided her an injection into the web space under the diagnosis of neuroma and that was unhelpful for the patient for any period of time even with local anesthetic. The patient presented to my clinic with MRI already having been obtained with no presentation of a neuroma. However, some evidence of a plantar plate tear. On clinical examination, she did have a positive Lon test with subluxation of the second metatarsophalangeal joint. The patient has been experiencing this pain for a number of months. She wished to proceed with surgical intervention at this time. The patient at that time was discussed the procedure and the options that are available and opted to proceed with the plantar plate repair as well as the Felton osteotomy. She did not have any digital contracture of the second metatarsophalangeal joint nor was there a bunion so no addressing of either of these issues was anticipated prior to surgical intervention. She understands all risks, benefits and complications of the procedure including but not limited to infection, hematoma, seroma, delayed bone healing, nonbone healing, delayed skin healing and nonskin healing. Plenty of time was allowed for the patient to ask questions which were answered to the patient's apparent satisfaction. With this, we proceeded with surgical intervention. DESCRIPTION OF PROCEDURE AND FINDINGS: The patient was brought into the OR and placed on the OR table in the supine position. At this time adequate general anesthesia was administered by the anesthesia team and a well-padded ankle tourniquet was applied to the patient's right ankle. The tourniquet was set to 250 mm of Mercury and the right lower extremity was prepped and draped in the typical sterile fashion. At this time attention was directed to the dorsal aspect of the second metaphalangeal joint where a linear incision was made just medial to the extensor digitorum longus tendon. At this time, Z-lengthening was performed on the tendon and the two ends of the tendon were retracted out of the surgical site. At this time, the joint line was identified and a linear capsulotomy was made from dorsal to plantar being careful not to resect the lateral collateral ligament. Because of the medial deviation of the digit, the decision was made to make a modified metatarsal osteotomy at the surgical neck at a 45 degree angle allowing to translate the digit medially in order to get lateral correction of the toe. This was performed utilizing a sagittal saw and with this displacement the toe corrected to an appropriate position this was fixated utilizing a 2.0 - 14 mm partially threaded screw in a distal medial to proximal lateral orientation near perpendicular to the osteotomy site. At this time the plantar plate was then identified at the plantar aspect of the surgical site. At this time it was examined and there did appear to be a tear at the lateral aspect of the plantar plate. The tear was then completed through the medial aspect and 2-0 MAXBraid was introduced from the dorsal aspect of the second metatarsal and brought through the plantar aspect of the proximal phalanx in order to obtain correction of the digit and would approximate the plantar plate into an anatomical position. The plantar plate was then assessed for tightness before tying it down which was deemed to be adequate but not over tightened. At this time a 200 knot was tied down in anatomical position. The foot was loaded with a plate and the toes were deviating in the appropriate position with minimal residual deformity. The tourniquet was let down at approximately 70 minutes total tourniquet time. At this time the extensor tendon then was repaired utilizing 4-0 Monocryl. Copious amounts of sterile saline were utilized to flush the surgical site. 4-0 Monocryl was utilized to coapt the surgical incision at the subcutaneous level in a buried simple interrupted-type fashion and then 3-0 Nylon was utilized in horizontal mattress-type fashion to coapt the surgical site. At this time a dressing consisting of Betadine, Adaptic, 4x4, Kerlix and AI were applied to the patient's right lower extremity. The patient was provided a forefoot offloading shoe in order to ambulate over the course of the next several weeks during the healing process. The patient was then reversed from anesthesia and returned to the postoperative anesthesia care unit with vital signs stable and vascular status intact. The patient handled the procedure and the anesthesia without complication. Postoperative orders as indicated in the patient's chart.
== END 2021-08-06 16:40 | disposition home or self-care (01) ==
LOC: SDC 11:01
PROVIDERS: ATTEND Podiatrist Foot & Ankle Surgery
DX: S93.144A Subluxation of metatarsophalangeal joint of right lesser toe(s), initial encounter (principal); S93.691A Other sprain of right foot, initial encounter; M79.671 Pain in right foot; R29.898 Other symptoms and signs involving the musculoskeletal system; Q66.89 Other specified congenital deformities of feet
CPT/HCPCS: 28306; 28313; 73620; 76000; C1713; J0690; J1100; J1885; J2250; J2270; J2405; J2704; J3010

== ENCOUNTER 2022-12-29 22:03 | Emergency (ER) | payer BC ==
--- NOTE | 2022-12-30 00:19 | ERPHSYRPT ---
- History of Present Illness Time Seen by Provider: 12/30/22 00:19 Source: patient Patient Subjective Stated Complaint: bilateral flank pain, pressure across lower abd bilaterally since thursday Triage Nursing Assessment: pt ambulatory to bed by self, pt guarding lower back, c/o bilaterally flank pain and c/o pressure in lower abdomen, pt was seen on thursday at urgent care, they ran a UA and culture, they were unable to run it d/t patient taking azo, she was still put on Keflex, pt afebrile Physician History: Pt c/o back pain, dysuria, urinary frequency and urgency for 4 days. Was seen at urgent care and started on Keflex for UTI yesterday and has taken 4 doses No fever, chills. + b/l L>R flank pain. No N/V. No hematuria. + suprapubic pain. No malodorous urine. Denies vaginal d/c. Timing/Duration: day(s) (4) Activites at Onset: none Quality: throbbing Onset Location: suprapubic, generalized flank, low back pain Pain Radiation: generalized flank, groin Severity of Pain-Max: severe Severity of Pain-Current: severe Prior abdominal problems: none Sexual intercourse history: non-contributory Modifying Factors: Improves With: nothing. Worsens With: movement, palpation Associated Symptoms: abdominal pain, No fever, No nausea, No vomiting Allergies/Adverse Reactions: red dye Allergy (Verified 12/29/22 23:59) shrimp Allergy (Verified 12/29/22 23:59) tested positve during allergy testing sulfamethoxazole [From Bactrim] Allergy (Verified 12/29/22 23:59) Hives trimethoprim [From Bactrim] Allergy (Verified 12/29/22 23:59) Hives Home Medications: Levothyroxine Sodium 50 Mcg [Synthroid 50 Mcg] 50 mcg PO DAILY 08/01/21 [History] cephALEXin [Cephalexin] 500 mg PO DAILY 12/30/22 [History] Hx Tetanus, Diphtheria Vaccination/Date Given: No Hx Influenza Vaccination/Date Given: No Hx Pneumococcal Vaccination/Date Given: No Travel Risk - International Travel Have you traveled outside of the country in past 3 weeks: No - Coronavirus Screening Are you exhibiting any of the following symptoms?: No Close contact with a COVID-19 positive Pt in past 14-21 Days: No - Vaccine Status Have you recieved a Covid-19 vaccination: No - Review of Systems Constitutional: No Symptoms Abdominal/Gastrointestinal: Abdominal Pain (suprapubic), No Nausea, No Vomiting Genitourinary Symptoms: Dysuria, Frequency, Urgency, Flank Pain, No Hematuria Musculoskeletal: No Symptoms Skin: No Symptoms Neurological: No Symptoms - Past Medical History Pertinent Past Medical History: Yes Neurological History: No Pertinent History ENT History: No Pertinent History Cardiac History: No Pertinent History Respiratory History: No Pertinent History Endocrine Medical History: Hypothyroidism Musculoskeletal History: No Pertinent History GI Medical History: No Pertinent History History: No Pertinent History Psycho-Social History: No Pertinent History Female Reproductive Disorders: No Pertinent History Other Medical History: minor mitrol valve prolapse - Past Surgical History Past Surgical History: Yes Neuro Surgical History: No Pertinent History Cardiac: No Pertinent History Respiratory: No Pertinent History Gastrointestinal: Cholecystectomy Genitourinary: No Pertinent History Musculoskeletal: Orthopedic Surgery Female Surgical History: Hysterectomy Other Surgical History: R foot - Social History Smoking Status: Never smoker Exposure to second hand smoke: No Drug Use: none Patient Lives Alone: No - Nursing Vital Signs Nursing Vital Signs: Initial Vital Signs Temperature 97.5 F 12/30/22 00:02 Pulse Rate 78 12/30/22 00:02 Respiratory Rate 18 12/30/22 00:02 Blood Pressure 194/88 12/30/22 00:02 O2 Sat by Pulse Oximetry 99 12/30/22 00:02 Pain Scale Pain Intensity 2 - Physical Exam General Appearance: mild distress Respiratory Exam: normal breath sounds Cardiovascular Exam: regular rate/rhythm Gastrointestinal/Abdomen Exam: soft, normal bowel sounds, tenderness (suprapubic), No distention, No mass, No guarding, No rebound Back Exam: CVA tenderness (left) Extremity Exam: normal inspection, No swelling Neurologic Exam: alert, oriented x 3, cooperative Skin Exam: normal color, warm, dry SpO2 Interpretation: normal SpO2: 99 O2 Delivery: Room Air - Course Nursing assessment & vital signs reviewed: Yes - CT Exams Abdomen/Pelvis CT Interpretation: Tele-radiologist Report, Other (small nephrolithiasis in left kidney w/o hydronephrosis or evidence of hydroureter, otherwise no acute abd pathology) Ordered Tests: Medication Summary Discontinued Medications Generic Name Dose Route Start Last Admin Trade Name Freq PRN Reason Stop Dose Admin Sodium Chloride 1,000 mls @ 999 mls/hr 12/30/22 00:33 12/30/22 02:38 Sodium Chloride 0.9% 1000 Ml IV 12/30/22 01:33 Infused .Q1H1M STA Infusion Sodium Chloride Confirm 12/30/22 00:38 Sodium Chloride 0.9% 1000 Ml Administered 12/30/22 00:39 Dose 1,000 mls @ ud .ROUTE .STK-MED ONE Ketorolac Tromethamine 30 mg 12/30/22 00:33 12/30/22 00:39 Ketorolac Tromethamine 30 Mg/Ml Inj IV 12/30/22 00:34 30 mg STAT ONE Administration Ketorolac Tromethamine Confirm 12/30/22 00:38 Ketorolac Tromethamine 30 Mg/Ml Inj Administered 12/30/22 00:39 Dose 30 mg .ROUTE .STK-MED ONE Lab/Rad Data: Laboratory Result Diagrams 12/30/22 00:09 12/30/22 00:09 Laboratory Results 12/30/22 12/30/22 12/30/22 Range/Units 00:33 00:09 00:09 WBC 9.6 (4.0-10.5) x10^3/uL RBC 4.51 (4.1-5.4) x10^6/uL Hgb 14.1 (12.0-16.0) g/dL Hct 42.9 (35-47) % MCV 95.1 (78-100) fL MCH 31.3 (26-32) pg MCHC 32.9 (32-36) g/dL RDW 12.0 (11.5-14.0) % Plt Count 247 (150-450) x10^3/uL MPV 10.6 (7.5-11.0) fL Gran % 77.7 H (36.0-66.0) % Immature Gran % (Auto) 0.2 (0.00-0.4) % Nucleat RBC Rel Count 0.0 (0.00-0.1) % Eos # (Auto) 0.17 (0-0.5) x10^3/uL Immature Gran # (Auto) 0.02 (0.00-0.03) x10^3u/L Absolute Lymphs (auto) 1.08 (1.0-4.6) x10^3/uL Absolute Monos (auto) 0.83 (0.0-1.3) x10^3/uL Absolute Nucleated RBC 0.00 (0.00-0.01) x10^3u/L Lymphocytes % 11.3 L (24.0-44.0) % Monocytes % 8.7 (0.0-12.0) % Eosinophils % 1.8 (0.00-5.0) % Basophils % 0.3 (0.0-0.4) % Absolute Granulocytes 7.45 H (1.4-6.9) x10^3/uL Basophils # 0.03 (0-0.4) x10^3/uL Sodium 140 (137-145) mmol/L Potassium 3.6 (3.5-5.1) mmol/L Chloride 103 (98-107) mmol/L Carbon Dioxide 27 (22-30) mmol/L Anion Gap 14.5 (5-15) MEQ/L BUN 14 (7-17) mg/dL Creatinine 0.68 (0.52-1.04) mg/dL Estimated GFR > 60.0 ML/MIN Glucose 123 H (74-106) mg/dL Lactic Acid 1.2 (0.4-2.0) Calcium 9.0 (8.4-10.2) mg/dL Total Bilirubin 0.50 (0.2-1.3) mg/dL AST 50 H (14-36) U/L ALT 53 H (0-35) U/L Alkaline Phosphatase 119 (38-126) U/L Serum Total Protein 8.0 (6.3-8.2) g/dL Albumin 4.5 (3.5-5.0) g/dL Urine Color (Yellow) Urine Appearance (Clear) Urine pH (4.6-8.0) Ur Specific [place] (1.005-1.030) Urine Protein (Negative) Urine Glucose (UA) (Negative) mg/dL Urine Ketones (Negative) Urine Blood (Negative) Urine Nitrite (Negative) Urine Bilirubin (Negative) Urine Urobilinogen (0.2) mg/dL Ur Leukocyte Esterase (Negative) U Hyaline Cast (Auto) (0-2) /LPF Urine Microscopic RBC (0-5) /HPF Urine Microscopic WBC (0-5) /HPF Ur Epithelial Cells (None Seen) /HPF Urine Bacteria (None Seen) /HPF Urine Culture Reflexed (NO) 12/30/22 Range/Units 00:05 WBC (4.0-10.5) x10^3/uL RBC (4.1-5.4) x10^6/uL Hgb (12.0-16.0) g/dL Hct (35-47) % MCV (78-100) fL MCH (26-32) pg MCHC (32-36) g/dL RDW (11.5-14.0) % Plt Count (150-450) x10^3/uL MPV (7.5-11.0) fL Gran % (36.0-66.0) % Immature Gran % (Auto) (0.00-0.4) % Nucleat RBC Rel Count (0.00-0.1) % Eos # (Auto) (0-0.5) x10^3/uL Immature Gran # (Auto) (0.00-0.03) x10^3u/L Absolute Lymphs (auto) (1.0-4.6) x10^3/uL Absolute Monos (auto) (0.0-1.3) x10^3/uL Absolute Nucleated RBC (0.00-0.01) x10^3u/L Lymphocytes % (24.0-44.0) % Monocytes % (0.0-12.0) % Eosinophils % (0.00-5.0) % Basophils % (0.0-0.4) % Absolute Granulocytes (1.4-6.9) x10^3/uL Basophils # (0-0.4) x10^3/uL Sodium (137-145) mmol/L Potassium (3.5-5.1) mmol/L Chloride (98-107) mmol/L Carbon Dioxide (22-30) mmol/L Anion Gap (5-15) MEQ/L BUN (7-17) mg/dL Creatinine (0.52-1.04) mg/dL Estimated GFR ML/MIN Glucose (74-106) mg/dL Lactic Acid (0.4-2.0) Calcium (8.4-10.2) mg/dL Total Bilirubin (0.2-1.3) mg/dL AST (14-36) U/L ALT (0-35) U/L Alkaline Phosphatase (38-126) U/L Serum Total Protein (6.3-8.2) g/dL Albumin (3.5-5.0) g/dL Urine Color Yellow (Yellow) Urine Appearance Clear (Clear) Urine pH 7.5 (4.6-8.0) Ur Specific [place] 1.010 (1.005-1.030) Urine Protein Negative (Negative) Urine Glucose (UA) Negative (Negative) mg/dL Urine Ketones Negative (Negative) Urine Blood Negative (Negative) Urine Nitrite Negative (Negative) Urine Bilirubin Negative (Negative) Urine Urobilinogen 1.0 A (0.2) mg/dL Ur Leukocyte Esterase Negative (Negative) U Hyaline Cast (Auto) NONE SEEN (0-2) /LPF Urine Microscopic RBC 0-2 (0-5) /HPF Urine Microscopic WBC 0-2 (0-5) /HPF Ur Epithelial Cells None Seen (None Seen) /HPF Urine Bacteria None Seen (None Seen) /HPF Urine Culture Reflexed NO (NO) - Progress Progress: improved Air Movement: good Progress Note: Patients pain improved w/ Toradol injection. CT showed small stones w/in the kidney, but no evidence of obstruction. Patient could have passed at some point, but unlikely due to lack of blood in her urine. No other acute abdominal pathology noted on imaging. She did have a mild transaminitis that will need w/u outpatient. I advised patient to continue abx as prescribed and return if sxs present again w/ pain and fever. Counseled pt/family regarding: lab results, diagnosis, need for follow-up, rad results Medical Desision Making - Diagnostic Testing Diagnostic test were ordered, analyzed, and reviewed by me: Yes Radiological Interpretation: Reviewed by me, Teleradiologist Report - Risk of complications The pt has a mod risk of morbidity or mortality based on: Need for prescription drug management - Departure Departure Disposition: Home Clinical Impression: Nephrolithiasis, Transaminitis Condition: Good Critical Care Time: No Referrals: POOJA HOLLEY MD [Primary Care Provider] - Follow up/PCP as directed Instructions: Kidney Stones (DC) Prescriptions: Tamsulosin HCl 0.4 mg [Flomax 0.4 MG] 0.4 mg PO DAILY #30 cap Ketorolac Trometh 10 mg Tab [TORAdol 10 MG TABLET] 10 mg PO TID PRN #15 tablet PRN Reason: Pain
[2022-12-30] MEDS ORDERED: TORAdol 30 mg Injection IV ONE (00:33)
[2022-12-30] MEDS ORDERED: Sodium Chloride 0.9% 1000 ML 1,000 ML IV STA (00:33)
[2022-12-30] MEDS ORDERED: Sodium Chloride 0.9% 1000 ML 1,000 ML ONE (00:38)
[2022-12-30] MEDS ORDERED: TORAdol 30 mg Injection ONE (00:38)
[2022-12-30 00:39] LABS: Appearance Clear (Clear); Bacteria None Seen /HPF (None Seen); Bilirubin Negative (Negative); Blood Negative (Negative); Epithelial Cells None Seen /HPF (None Seen); Glucose, Urine Negative (Negative); Hyaline Casts NONE SEEN /LPF (0-2); Ketones Negative (Negative); Leukocyte Esterase Negative (Negative); Nitrite Negative (Negative); Ph 7.5 (4.6-8.0); Protein,Urine Dip Negative (Negative); RBC 0-2 /HPF (0-5); WBC 0-2 /HPF (0-5)
[2022-12-30 00:41] LABS: Absolute Neutrophil Ct (ANC) 7.45 x10^3/uL (1.4-6.9); BASOPHIL % 0.3 % (0.0-0.4); Basophil (Absolute #) 0.03 x10^3/uL (0-0.4); Eosinophil % 1.8 % (0.00-5.0); Eosinophil (Absolute #) 0.17 x10^3/uL (0-0.5); Hematocrit 42.9 % (35-47); Hemoglobin 14.1 g/dL (12.0-16.0); IMMATURE GRAN # 0.02 x10^3u/L (0.00-0.03); IMMATURE GRAN % 0.2 % (0.00-0.4); Lymphocyte (Absolute #) 1.08 x10^3/uL (1.0-4.6); Lymphocytes % 11.3 % (24.0-44.0); Mean Cell Volume 95.1 fL (78-100); Mean Corpuscular Hemoglobin 31.3 pg (26-32); Mean Corpuscular Hgb Concent. 32.9 g/dL (32-36); Mean Platelet Volume 10.6 fL (7.5-11.0); Monocyte (Absolute #) 0.83 x10^3/uL (0.0-1.3); Monocytes % 8.7 % (0.0-12.0); Neutrophil % 77.7 % (36.0-66.0); Platelet Count 247 x10^3/uL (150-450); Red Blood Count 4.51 x10^6/uL (4.1-5.4); White Blood Count 9.6 x10^3/uL (4.0-10.5)
[2022-12-30 00:42] LABS: ADD URINE CULTURE? NO (NO)
[2022-12-30 00:47] LABS: ALBUMIN 4.5 g/dL (3.5-5.0); ALKALINE PHOSPHATASE 119 U/L (38-126); ANION GAP 14.5 MEQ/L (5-15); BLOOD UREA NITROGEN 14 mg/dL (7-17); CHLORIDE 103 mmol/L (98-107); Carbon Dioxide 27 mmol/L (22-30); Creatinine 1 0.68 mg/dL (0.52-1.04); EST GLOMERULAR FILTRATION RATE > 60.0 ML/MIN; Glucose 123 mg/dL (74-106); Potassium 3.6 mmol/L (3.5-5.1); SGOT/AST 50 U/L (14-36); SGPT/ALT 53 U/L (0-35); SODIUM 140 mmol/L (137-145)
[2022-12-30 02:37] VITALS: PULSE 65
--- NOTE | 2022-12-30 03:09 | XRAY ---
CLINICAL HISTORY:Abd pain; COMPARISON:10/03/2018; TECHNIQUES:Axial sections of CT abdomen and pelvis were obtained without administration of intravenous contrast. Reformatted coronal and sagittal images were acquired; FINDINGS: The liver is normal in size and attenuation. No discrete focal hepatic lesion is seen. No definite evidence of intrahepatic biliary dilatation. Status post Cholecystectomy. The spleen, pancreas, and bilateral adrenal glands appear unremarkable. Both kidneys are normal in size and shape. 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 Bilateral small nonobstructing renal calculi. The largest in the lower pole of the left kidney measures 2 mm. Subtle hyperdensity in the upper pole of the right kidney may represent tiny calculi/concretion. Bilateral extrarenal pelvis. The stomach is normally distended. Hiatal hernia is seen. Colonic diverticulosis without diverticulitis. The appendix is separately visualized. No definite evidence of acute appendicitis. Nonvisualization of the uterus, secondary to hysterectomy. Metallic clips in the right adnexal region. Bilateral adnexa otherwise appears unremarkable. Redemonstration of soft tissue with calcification in the mid-abdomen. This is currently measuring 9.7 mm on a short axis. Redemonstration of a few other soft tissue densities/lymph nodes in the right side of the abdomen, the largest measuring 9.5 mm in short axis. There is mild surrounding tethering. No ascites or pneumoperitoneum. Mild atherosclerotic changes in the abdominal aorta and its branches. Degenerative changes in the visualized bone. Subpleural nodule measuring 2.3 mm in the right lung base Lung-RADS 2. Bilateral lung bases atelectatic changes. IMPRESSION: No significant interval change from prior CT examination. No acute intra-abdominal or pelvic pathology. Nonobstructing left renal calculi, appearing unchanged. Subtle hyperdensity in the upper pole of the right kidney may represent tiny calculi/concretion. No evidence of obstructive uropathy. Redemonstration of soft tissue densities/lymph nodes in the mid and right abdomen, appearing grossly unchanged. The appendix appears unremarkable. Colonic diverticulosis without acute diverticulitis. Subpleural nodule measuring 2.3 mm in the right lung base, Lung-RADS 2. Electronically Signed by: Pablo Norris MD. (12/30/2022 01:57:47 GEOSPATIAL INFORMATION SCIENTIST)
[2022-12-30 03:24] VITALS: O2SAT 99
[2022-12-30 03:28] VITALS: BP 143/76
== END 2022-12-30 03:32 | disposition home or self-care (01) ==
LOC: ED 22:03
DX: N20.0 Calculus of kidney (principal); R74.01 Elevation of levels of liver transaminase levels; R30.0 Dysuria; M54.9 Dorsalgia, unspecified; R35.0 Frequency of micturition; Z79.899 Other long term (current) drug therapy; Z28.310 Unvaccinated for COVID-19
CPT/HCPCS: 36000; 36415; 74176; 80053; 81001; 83605; 85025; 96360; 96374; 99284; J1885